=== PATIENT | female | born 1960 | race Caucasian/White ===

== ENCOUNTER 2023-08-27 09:57 | Emergency (ER) | payer MEDICARE, OTHER, SELFPAY ==
[2023-08-27] VITALS (24 sets, daily range): BP systolic 132–171; BP diastolic 72–101; PULSE 67–85; RESP 18; TEMP 37.6; O2SAT 94–100; BMI 32.3
--- NOTE | 2023-08-27 10:29 | CRLHL7_ITS ---
For Patients: As a result of the 21st Century Cures Act, medical imaging exams and procedure reports are released immediately into your electronic medical record. You may view this report before your referring provider. If you have questions, please contact your health care provider. INDICATION: Diffuse abdominal pain, worse in the left upper quadrant and epigastrium COMPARISON: None. TECHNIQUE: CT of the abdomen and pelvis after the administration of intravenous contrast. Multiplanar axial, coronal, and sagittal reformats were reconstructed. Contrast: 90 mL Isovue 370 intravenously. Oral contrast was not administered. FINDINGS: Lung bases: Normal. Liver: Normal. No masses. Normal vasculature. Gallbladder and biliary tree: Cholecystectomy. Mild central intrahepatic and extrahepatic dilatation with normal tapering to the ampulla. Appearance is most consistent with reservoir effect.. Pancreas: Normal. Spleen: Normal. Normal size. Adrenal glands: Normal. No nodules. Kidneys and bladder: Normal size and position. No cyst or mass. No calculi. No urinary tract dilation. The urinary bladder is normal. GI: Large sliding-type hiatal hernia. About 60-75 percent of the stomach is above the hiatus. The entire herniated stomach is not included in the [id number], but where seen there is not a substantial amount of inflammatory change or focal fluid. No dilated segments. No abnormal bowel wall thickening or hyperenhancement. Diverticulosis without diverticulitis. Small stool burden. The appendix is not discretely seen. Vessels: Aorta and major branches, including the mesenteric vessels: Patent. Normal caliber. No atherosclerotic plaques. IVC and tributaries: Normal. Mesenteric and portal veins: Normal. Peritoneum: No free fluid. Lymph nodes: No adenopathy. Pelvis: Physiologic appearance of the reproductive organs. Bones: No fractures. No focal bone lesions. Normal for age. IMPRESSION: IMPRESSIONLarge hiatal hernia containing the majority of the stomach. No CT findings of gastric volvulus or inflammation. Please note that all CT scans at this facility use dose modulation, iterative reconstruction, and/or weight-based dosing when appropriate to reduce radiation dose to as low as reasonably achievable. Dictated by Elissa Hernandez MD @ 08/27/2023 12:44:34 PM (Electronically Signed)
[2023-08-27] MEDS: KETOROLAC 15 MG/ML inj IVP (11:10)
[2023-08-27] MEDS: LACTATED RINGERS 1000 ML 1,000 ML IV (11:10)
--- NOTE | 2023-08-27 11:23 | ED.GENADULT ---
HPI - General Adult General Date Seen: 08/27/23 Chief complaint: Headache/Migraine Stated complaint: Abdominal pain Time Seen by Provider: 08/27/23 10:13 Source: patient Mode of arrival: EMS Limitations: no limitations History of Present Illness HPI narrative: Patient is a 63-year-old female with a history of chronic neck and back disease, fibromyalgia, gastroparesis, PTSD on disability presenting to emergency department for abdominal pain, fatigue, diaphoresis. Patient states this has been a ongoing issue for 4-7 years. She cannot say for certain. Says it happens every few months but does not know states it occurred 3 times in the past month. Issues doing well this morning and he in drink normally. She then we was gone to the bathroom and noticed she became very diaphoretic, weak, dizzy and developed abdominal pain with nausea. Symptoms were not improving so she called EMS. She was given Zofran by them and she states the nausea has improved but is still mildly there. She is now complaining about a severe headache. She has had headaches like this before. States it feels like it is behind her eyes. States her neck is stiff to turn side to side but also states she has chronic neck issues. She has never been evaluated for these symptoms before. Denies fevers, chest pain, shortness breath, diarrhea, constipation. Related Data Home Medications Medication Instructions Recorded Confirmed ipratropium bromide 17 2 puff inhalation QID PRN 05/23/22 07/20/23 mcg/actuation HFA aerosol inhaler (Atrovent HFA) lactobacillus combination no.9 4 4,000 mmu cells PO QDAY 05/23/22 07/20/23 billion cell capsule (Adult 50 Plus Probiotic) levalbuterol tartrate 45 2 puff inhalation Q4H PRN 05/23/22 07/20/23 mcg/actuation aerosol inhaler (Xopenex HFA) lidocaine 4 % topical patch 1 patch topical QDAY PRN 05/23/22 07/20/23 (Salonpas (lidocaine)) lidocaine 5 % topical ointment 1 applic topical QDAY PRN 05/23/22 07/20/23 multivitamin 1 tab PO QDAY 05/23/22 07/20/23 promethazine 25 mg tablet 25 mg PO Q6H PRN 07/12/22 09/08/23 bisacodyl 5 mg tablet,delayed 5 mg PO .COMPLEX PRN constipation 09/29/22 07/20/23 release (Dulcolax (bisacodyl)) simethicone 125 mg capsule (Gas 250 mg PO QDAY PRN 09/29/22 07/20/23 Relief (simethicone)) melatonin 5 mg capsule 15 mg PO DAILY 03/23/23 07/20/23 metholated folic acid PO QDAY 03/23/23 07/20/23 Previous Rx's Medication Instructions Recorded valacyclovir 1 gram tablet 1,000 mg PO BID PRN cold sores #12 07/06/22 tabs mirtazapine 15 mg tablet 7.5 mg (1/2 x 15 mg) PO BID #45 03/23/23 tabs zolpidem 12.5 mg tablet,extended 12.5 mg PO QHS #30 tabs 03/23/23 release,multiphase tramadol 50 mg tablet 50 - 100 mg (1 - 2 x 50 mg) PO TID 04/20/23 PRN pain #150 tabs dextroamphetamine-amphetamine 5 mg 5 mg PO BID #60 tabs 07/20/23 tablet (Adderall) clonazepam 1 mg tablet 1.5 mg (1.5 x 1 mg) PO BID #90 tabs 07/24/23 tizanidine 2 mg tablet 2 - 4 mg (1 - 2 x 2 mg) PO Q6H PRN 08/22/23 muscle spasticity 30 days #240 tabs ondansetron 4 mg disintegrating 4 mg PO Q6H #20 tabs 08/27/23 tablet Allergies Allergy/AdvReac Type Severity Reaction Status Date / Time amitriptyline Allergy Severe tachycardia Verified 07/20/23 13:44 cefprozil Allergy Severe Anaphylaxis Verified 07/20/23 13:44 Cephalosporins Allergy Severe Verified 07/20/23 13:44 quetiapine Allergy Severe Verified 07/20/23 13:44 oxacillin Allergy Mild Verified 07/20/23 13:44 Review of Systems Status of ROS: Reports: 10 or more systems reviewed and unremarkable except as noted in History and below 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 - Myalgic encephalomyelitis/chronic fatigue syndrome (ICD-10) ?U09.9 - Post covid-19 condition, unspecified (ICD-10) COVID-19 ?U07.1 - COVID-19 (ICD-10) History of dental problems ?Z87.19 - Personal history of other diseases of the digestive system (ICD-10) History of sepsis (2012) ?Z86.19 - Personal history of other infectious and parasitic diseases (ICD-10) History of infectious mononucleosis ?Z86.19 - Personal history of other infectious and parasitic diseases (ICD-10) Recurrent herpes labialis ?B00.1 - Herpesviral vesicular dermatitis (ICD-10) Hepatic steatosis ?K76.0 - Fatty (change of) liver, not elsewhere classified (ICD-10) Hyperlipidemia ?E78.5 - Hyperlipidemia, unspecified (ICD-10) Hypertension ?I10 - Essential (primary) hypertension (ICD-10) Mild persistent asthma ?J45.30 - Mild persistent asthma, uncomplicated (ICD-10) Major depressive disorder, recurrent episode, moderate ?F33.1 - Major depressive disorder, recurrent, moderate (ICD-10) Decreased hearing of right ear ?H91.91 - Unspecified hearing loss, right ear (ICD-10) RLS (restless legs syndrome) ?G25.81 - Restless legs syndrome (ICD-10) CYP2B6 intermediate metabolizer ?E88.89 - Other specified metabolic disorders (ICD-10) History of psychiatric hospitalization ?Z86.59 - Personal history of other mental and behavioral disorders (ICD-10) History of gestational diabetes ?Z86.32 - Personal history of gestational diabetes (ICD-10) Fibromyalgia ?M79.7 - Fibromyalgia (ICD-10) GERD (gastroesophageal reflux disease) ?K21.9 - Gastro-esophageal reflux disease without esophagitis (ICD-10) Hypothyroidism ?E03.9 - Hypothyroidism, unspecified (ICD-10) PTSD (post-traumatic stress disorder) ?F43.10 - Post-traumatic stress disorder, unspecified (ICD-10) Gastroparesis ?K31.84 - Gastroparesis (ICD-10) Insomnia ?G47.00 - Insomnia, unspecified (ICD-10) Chronic low back pain ?M54.50 - Low back pain, unspecified (ICD-10) ?G89.29 - Other chronic pain (ICD-10) Surgical History History of cholecystectomy (~2013) ?Z90.49 - Acquired absence of other specified parts of digestive tract (ICD-10) History of bone graft (1994) ?Z98.890 - Other specified postprocedural states (ICD-10) History of tonsillectomy ?Z90.89 - Acquired absence of other organs (ICD-10) Family History Father Coronary artery disease, Onset Age: 39 Stroke, Onset Age: 72 Kidney disease Mother Mental disorder Unknown Cervical cancer Social History Narrative: Disabled. Rarely consumes EtOH. . 3 children. Smoker. Smoking Status: Former smoker Do you use any of these nicotine containing products: None Second hand tobacco smoke exposure: Yes How often do you have a drink containing alcohol: never How often do you have six or more drinks on one occasion: Never AUDIT-C Alcohol total score: 0 Non-prescribed substance use: denies use Little interest or pleasure in doing things: nearly every day Feeling down, depressed, or hopeless: nearly every day service: No Exam Narrative: Exam Narrative: Const: Well-nourished, Well-developed, in mild distress Eyes: PERRL, no conjunctival injection, and symmetrical lids HENT: Atraumatic external nose and ears. Moist mucous membranes. Neck: Symmetric, trachea midline, No thyromegaly. CVS: RRR, No murmurs or gallops. Peripheral pulses 2+ and equal in all extremities RESP: Unlabored respiratory effort. Clear to auscultation bilaterally. GI: Nontender/Nondistended, No rebound or guarding. MSK:Extremities w/o deformity, Normal Active ROM Skin: Warm, Dry. No rashes or lesions. Neuro: Normal Muscle tone, No focal neurological deficits. Psych: Awake, Alert, & Oriented x3. Appropriate mood and affect. Const: Vital Signs, click to edit/add: Vital Signs - 24 hr 08/27/23 10:05 08/27/23 10:58 08/27/23 11:00 Temperature 99.6 F Pulse Rate 82 73 Pulse Rate [Pulse Oximeter] 75 Respiratory Rate 18 Blood Pressure Blood Pressure [Ri ght Upper Arm] 139/72 Pulse Oximetry 94 97 97 Oxygen Delivery Me thod Room Air 08/27/23 11:01 08/27/23 11:15 08/27/23 11:30 Temperature Pulse Rate 73 68 67 Pulse Rate [Pulse Oximeter] Respiratory Rate Blood Pressure 150/84 H Blood Pressure [Ri ght Upper Arm] Pulse Oximetry 98 99 95 Oxygen Delivery Me thod 08/27/23 11:32 08/27/23 11:45 08/27/23 12:12 Temperature Pulse Rate 68 68 76 Pulse Rate [Pulse Oximeter] Respiratory Rate Blood Pressure 136/78 Blood Pressure [Ri ght Upper Arm] Pulse Oximetry 97 97 96 Oxygen Delivery Me thod 08/27/23 12:15 08/27/23 12:30 08/27/23 12:32 Temperature Pulse Rate 80 72 75 Pulse Rate [Pulse Oximeter] Respiratory Rate Blood Pressure 132/85 Blood Pressure [Ri ght Upper Arm] Pulse Oximetry 97 100 97 Oxygen Delivery Me thod 08/27/23 12:45 08/27/23 13:04 08/27/23 13:15 Temperature Pulse Rate 70 82 85 Pulse Rate [Pulse Oximeter] Respiratory Rate Blood Pressure 171/101 H Blood Pressure [Ri ght Upper Arm] Pulse Oximetry 95 98 100 Oxygen Delivery Me thod 08/27/23 13:16 08/27/23 13:30 08/27/23 13:31 Temperature Pulse Rate 79 76 78 Pulse Rate [Pulse Oximeter] Respiratory Rate Blood Pressure 154/92 H Blood Pressure [Ri ght Upper Arm] Pulse Oximetry 99 96 96 Oxygen Delivery Me thod 08/27/23 13:53 08/27/23 14:00 08/27/23 14:02 Temperature Pulse Rate 73 76 81 Pulse Rate [Pulse Oximeter] Respiratory Rate Blood Pressure 169/88 H Blood Pressure [Ri ght Upper Arm] Pulse Oximetry 97 96 96 Oxygen Delivery Me thod 08/27/23 14:15 08/27/23 14:30 08/27/23 14:31 Temperature Pulse Rate 73 77 82 Pulse Rate [Pulse Oximeter] Respiratory Rate Blood Pressure 165/100 H Blood Pressure [Ri ght Upper Arm] Pulse Oximetry 96 98 97 Oxygen Delivery Me thod Course Vital Signs Vital signs: Initial Vital Signs Temperature 99.6 F 08/27/23 10:05 Temperature Source Oral 10/16/23 10:05 Pulse Rate 75 08/27/23 10:05 Pulse Rhythm Regular 08/27/23 10:05 Respiratory Rate 18 08/27/23 10:05 Blood Pressure 139/72 08/27/23 10:05 Blood Pressure Mean 94 08/27/23 10:05 Blood Pressure Position Supine 08/27/23 10:05 Pulse Oximetry 94 08/27/23 10:05 Oxygen Delivery Method Room Air 08/27/23 10:05 Vital Signs Temperature 99.6 F 08/27/23 10:05 Pulse Rate 75 08/27/23 10:05 Respiratory Rate 18 08/27/23 10:05 Blood Pressure 139/72 08/27/23 10:05 Pulse Oximetry 94 08/27/23 10:05 Oxygen Delivery Method Room Air 08/27/23 10:05 Temperature 99.6 F 08/27/23 10:05 Pulse Rate 82 08/27/23 14:31 Respiratory Rate 18 08/27/23 10:05 Blood Pressure 165/100 H 08/27/23 14:31 Pulse Oximetry 97 08/27/23 14:31 Oxygen Delivery Method Room Air 08/27/23 10:05 Medical Decision Making MDM Narrative Medical decision making narrative: Patient is 63 year to year old female presenting for multiple issues. She is having abdominal pain and headache with dizziness and diaphoresis. Diaphoresis since resolved. She still feeling mildly dizzy. Unable move her head due to stiffness of her neck that occurs alongside the symptoms in the past. This is a recurrent issue but is becoming more frequent. Has not had worked up yet. We will do CBC, CMP, urinalysis, magnesium, lipase, troponin. Also or abdominal scan of the CT with IV contrast. Patient given Toradol for pain in L of fluid. She refused the Reglan Benadryl because she says she has bad reactions to and wanted Zofran. This was ordered. After the medications her abdominal pain is feeling slightly better but she still having a bad headache. She said this was a worse headache than she has ever had before sudden the t[place] CT head and cervical spine due to also have a neck stiffness. The CT appears normal. There was some residual IV contrast so we cannot definitively say there was no bleed but it appears unlikely at this time. The headache symptoms have resolved after she got the head CT. The abdominal CT shows a large hiatal hernia. She is aware she has a hiatal hernia. She was complaining of worsening abdominal pain again and the patient was given food, GI cocktail. After this abdominal symptoms have resolved. Likely her abdominal pain was secondary to a hiatal hernia causing gastric reflux. Lipase within normal limits and pancreatitis unlikely. No signs of any other infection in the abdominal CT. Cervical spine CT shows no acute abnormalities. CBC and CMP showed no concerning abnormalities. Urinalysis shows no signs of a UTI. When I went back and spoke to the patient she looks much better at this time she feels comfortable for discharge. Possibly the symptoms are causing her become diaphoretic in the lightheaded is the onset of a migraine that is then shortly followed followed by the pain. She states she is scheduled to follow-up with her primary care provider. She agrees with the plan for discharge. Lab Data Labs: Lab Results 08/27/23 08/27/23 08/27/23 Range/Units 10:50 11:24 13:00 WBC 8.79 (4.50-11.00) K/uL RBC 4.80 (4.00-5.20) m/uL Hgb 13.6 (12.0-16.0) gm/dL Hct 41.7 (33.0-51.0) % MCV 87 (80-100) fL MCH 28 (26-34) pg MCHC 33 (32-36) gm/dL RDW Coeff of [place] 12.0 (11.5-15.5) % Plt Count 208 (140-440) K/uL Neut % (Auto) 80.4 H (42.0-72.0) % Lymph % (Auto) 11.8 L (20-44) % [place] % (Auto) 6.0 (0.0-11.0) % Eos % (Auto) 0.6 (0.0-7.0) % Baso % (Auto) 0.6 (0.0-3.0) % Neut # (Auto) 7.10 H (1.7-7.0) K/uL Lymph # (Auto) 1.00 (0.90-2.90) K/uL [place] # (Auto) 0.50 (0.00-0.90) K/UL Eos # (Auto) 0.05 (0.00-0.50) K/uL Baso # (Auto) 0.05 (0.00-0.30) K/uL Abs Immat Gran (auto) 0.05 (0.00-0.30) K/uL Imm/Tot Granulo (auto) 0.6 % Sodium 140 (135-149) mmol/L Potassium 3.9 (3.6-5.1) mmol/L Chloride 107 (96-114) mmol/L Carbon Dioxide 23 (20-32) mmol/L Anion Gap 10 (7-15) mEq/L BUN 16 (7-30) mg/dL Creatinine 0.9 (0.5-1.5) mg/dL Estimated Creat Clear 54.61 Estimated GFR 72 ml/min Glucose 114 (60-115) mg/dL Calcium 8.8 (8.4-10.6) mg/dL Magnesium 2.2 (1.5-2.6) mg/dL Total Bilirubin 0.6 (0.1-1.5) mg/dL AST 51 H (12-35) U/L ALT 29 (4-35) U/L Alkaline Phosphatase 84 (40-150) U/L Troponin I < 0.01 L (0.01-0.04) ng/mL Total Protein 6.9 (6.0-8.3) g/dL Albumin 4.2 (3.3-5.0) g/dL Lipase 112 (23-300) U/L Urine Color Yellow (Yellow) Urine Appearance Clear (Clear) Urine pH 7.0 (5.0-8.5) Ur Specific [place] 1.015 (1.000-1.030) Urine Protein Negative (Negative) Urine Glucose (UA) Negative (Negative) Urine Ketones Negative (Negative) Urine Blood Negative (Negative) Urine Nitrite Negative (Negative) Urine Bilirubin Negative (Negative) Urine Urobilinogen 0.2 (0.2-1.0) Ur Leukocyte Esterase Negative (Negative) Urine RBC 0-2 (0-2) Urine WBC 0-2 (0-5) Ur Squamous Epith Cells Few (None-Few) Amorphous Sediment Few A (None) Urine Bacteria None (None) POC Creatinine 1.0 (0.6-1.3) mg/dl Imaging Data CT scan - head: Radiologist's impression: Indication: Headache, migraine Technique: Volumetric multidetector CT images of the head were obtained without the administration of low osmolar intravenous contrast. Comparison: None available Findings: Overall, exam is mildly limited due to previously administered intravenous contrast for recent abdominal exam. No obvious intra-axial or extra-axial hemorrhage is identified. Trace subarachnoid hemorrhages may be difficult to exclude. There is no mass effect or midline shift. The ventricles and sulci are normal in size and position for age. There is mild to moderate chronic small vessel disease change within the subcortical and periventricular white matter. Otherwise, the brain parenchyma is preserved in attenuation and casanova-white differentiation. The orbits and their contents are grossly within normal limits. The bony calvarium is grossly intact. The paranasal sinuses are clear. The mastoid air cells are well aerated. Impression: Mildly limited exam due to administration of contrast material from recent CT abdomen pelvis. Mildly limited evaluation of subtle extra-axial hemorrhage. Otherwise, no acute intracranial abnormality is identified. Please note that all CT scans at this facility use dose modulation, iterative reconstruction, and/or weight-based dosing when appropriate to reduce radiation dose to as low as reasonably achievable. Dictated by Brandt Harris MD @ 08/27/2023 2:22:[address] scan cervical spine: Radiologist's impression: Indication: Headache migraine neck pain, no known DJD Technique: Volumetric multidetector CT images of the cervical spine were obtained without the administration of IV contrast. Comparison: None available. Findings: The cervical vertebral body heights are grossly maintained. There is straightening of the normal cervical lordosis with trace anterolisthesis of C4 on C5 and C6 on C7. There is no displaced fracture or dislocation. There is moderate degenerative disc disease with disc height loss and marginal osteophyte formation worse at the C4-5, C5-6 and C6-C7 levels. There is moderate facet arthrosis. The paraspinous soft tissues are grossly within normal limits. Impression: Moderate degenerative changes of the cervical spine without acute osseous abnormality. Please note that all CT scans at this facility use dose modulation, iterative reconstruction, and/or weight-based dosing when appropriate to reduce radiation dose to as low as reasonably achievable. Dictated by Brandt Harris MD @ 08/27/2023 2:30:[address] scan abdomen pelvis: Radiologist's impression: INDICATION: Diffuse abdominal pain, worse in the left upper quadrant and epigastrium COMPARISON: None. TECHNIQUE: CT of the abdomen and pelvis after the administration of intravenous contrast. Multiplanar axial, coronal, and sagittal reformats were reconstructed. Contrast: 90 mL Isovue 370 intravenously. Oral contrast was not administered. FINDINGS: Lung bases: Normal. Liver: Normal. No masses. Normal vasculature. Gallbladder and biliary tree: Cholecystectomy. Mild central intrahepatic and extrahepatic dilatation with normal tapering to the ampulla. Appearance is most consistent with reservoir effect.. Pancreas: Normal. Spleen: Normal. Normal size. Adrenal glands: Normal. No nodules. Kidneys and bladder: Normal size and position. No cyst or mass. No calculi. No urinary tract dilation. The urinary bladder is normal. GI: Large sliding-type hiatal hernia. About 60-75 percent of the stomach is above the hiatus. The entire herniated stomach is not included in the [id number], but where seen there is not a substantial amount of inflammatory change or focal fluid. No dilated segments. No abnormal bowel wall thickening or hyperenhancement. Diverticulosis without diverticulitis. Small stool burden. The appendix is not discretely seen. Vessels: Aorta and major branches, including the mesenteric vessels: Patent. Normal caliber. No atherosclerotic plaques. IVC and tributaries: Normal. Mesenteric and portal veins: Normal. Peritoneum: No free fluid. Lymph nodes: No adenopathy. Pelvis: Physiologic appearance of the reproductive organs. Bones: No fractures. No focal bone lesions. Normal for age. IMPRESSION: IMPRESSIONLarge hiatal hernia containing the majority of the stomach. No CT findings of gastric volvulus or inflammation. Please note that all CT scans at this facility use dose modulation, iterative reconstruction, and/or weight-based dosing when appropriate to reduce radiation dose to as low as reasonably achievable. Dictated by Eilssa Hernandez MD @ 08/27/2023 12:44:34 PM ECG Data Attestation: I personally reviewed and interpreted this ECG as follows: Prior ECG tracings: not available for review Interpretation: Normal sinus rhythm with a rate of 72 beats per minute, normal intervals, normal axis, no ST or T-wave abnormalities. There is a large amount of artifact. Discharge Plan Discharge Clinical Impression: Migraine, Abdominal pain Patient Disposition: Home, Self-Care Condition: Improved Instructions: Hiatal Hernia (ED), Migraine Headache (ED) Additional Instructions: Follow-up with primary care provider for these symptoms. Her headache appears to be secondary to a migraine. Take Tylenol and ibuprofen for it. The abdominal pain could be related to her hiatal hernia causing gastric reflux. Try taking antacids if you developed the pain. Prescriptions: New ondansetron 4 mg tablet,disintegrating 4 mg PO Q6H Qty: 20 0RF No Action simethicone [Gas Relief (simethicone)] 125 mg capsule 250 mg PO QDAY PRN melatonin 5 mg capsule 15 mg PO DAILY metholated folic acid PO QDAY zolpidem 12.5 mg tablet,ext release multiphase 12.5 mg PO QHS Qty: 30 5RF mirtazapine 15 mg tablet 7.5 mg PO BID Qty: 45 5RF dextroamphetamine-amphetamine [Adderall] 5 mg tablet 5 mg PO BID Qty: 60 0RF Rx Instructions: administer doses at least 4-6 hours apart Atrovent HFA 17 mcg/actuation HFA aerosol inhaler 2 puff inhalation QID PRN levalbuterol tartrate [Xopenex HFA] 45 mcg/actuation HFA aerosol inhaler 2 puff inhalation Q4H PRN lidocaine 5 % ointment 1 applic topical QDAY PRN promethazine 25 mg tablet 25 mg PO Q6H PRN Adult 50 Plus Probiotic 4 billion cell capsule 4,000 mmu cells PO QDAY Rx Instructions: administer with a meal lidocaine [Salonpas (lidocaine)] 4 % adhesive patch,medicated 1 patch topical QDAY PRN multivitamin Tablet 1 tab PO QDAY valacyclovir 1 gram tablet 1,000 mg PO BID PRN (Reason: cold sores) Qty: 12 5RF Patient Comments: for 5 days bisacodyl [Dulcolax (bisacodyl)] 5 mg tablet,delayed release (DR/EC) 5 mg PO .COMPLEX PRN (Reason: constipation) Rx Instructions: 5 mg orally As needed PRN; tramadol 50 mg tablet 50 - 100 mg PO TID PRN (Reason: pain) Qty: 150 2RF Rx Instructions: Must last a month clonazepam 1 mg tablet 1.5 mg PO BID Qty: 90 2RF Rx Instructions: Take 1 and 1/2 tabs PO BID p.r.n. tizanidine 2 mg tablet 2 - 4 mg PO Q6H PRN (Reason: muscle spasticity) 30 Days Qty: 240 5RF Follow Up/Referrals: Bobby Evans MD [Primary Care Provider] - Stand Alone Forms: [employer] Info Instructions
[2023-08-27] MEDS: ONDANSETRON 2 MG/ML inj 4 MG IVP (11:24)
[2023-08-27 12:06] LABS: Albumin* 4.2 g/dL (3.3-5.0); Chloride* 107 mmol/L (96-114)
[2023-08-27 12:07] LABS: Potassium* 3.9 mmol/L (3.6-5.1); Sodium* 140 mmol/L (135-149)
[2023-08-27 12:08] LABS: Basophils Absolute Auto 0.05 K/uL (0.00-0.30); Basophils Percent Auto 0.6 % (0.0-3.0); Eosinophils Absolute Auto 0.05 K/uL (0.00-0.50); Eosinophils Percent Auto 0.6 % (0.0-7.0); Hematocrit 41.7 % (33.0-51.0); Hemoglobin* 13.6 gm/dL (12.0-16.0); Immature Granulocytes Abs Auto 0.05 K/uL (0.00-0.30); Immature Granulocytes Pct Auto 0.6 %; Lymphocytes Percent Auto 11.8 % (20-44); Mean Corpuscular HGB Conc 33 gm/dL (32-36); Mean Corpuscular Hemoglobin 28 pg (26-34); Mean Corpuscular Volume 87 fL (80-100); Neutrophils Percent Auto 80.4 % (42.0-72.0); Platelet Count* 208 K/uL (140-440); White Blood Count* 8.79 K/uL (4.50-11.00)
[2023-08-27 12:09] LABS: Alkaline Phosphatase* 84 U/L (40-150); Anion Gap 10 mEq/L (7-15); Aspartate Amino Transferase* 51 U/L (12-35); Bilirubin Total* 0.6 mg/dL (0.1-1.5); Blood Urea Nitrogen* 16 mg/dL (7-30); Carbon Dioxide* 23 mmol/L (20-32); Creatinine* 0.9 mg/dL (0.5-1.5); Est. Creatinine Clearance* 54.61; Estimated Glomerular Filt Rate 72 ml/min; Glucose* 114 mg/dL (60-115); Lipase* 112 U/L (23-300); Slide Review Reflex No; Total Protein* 6.9 g/dL (6.0-8.3)
[2023-08-27 12:10] LABS: Alanine Aminotransferase* 29 U/L (4-35); Calcium* 8.8 mg/dL (8.4-10.6); Magnesium* 2.2 mg/dL (1.5-2.6)
[2023-08-27 12:24] LABS: Troponin I* < 0.01 ng/mL (0.01-0.04)
--- NOTE | 2023-08-27 13:04 | CRLHL7_ITS ---
For Patients: As a result of the Century Cures Act, medical imaging exams and procedure reports are released immediately into your electronic medical record. You may view this report before your referring provider. If you have questions, please contact your health care provider. Indication: Headache migraine neck pain, no known DJD Technique: Volumetric multidetector CT images of the cervical spine were obtained without the administration of IV contrast. Comparison: None available. Findings: The cervical vertebral body heights are grossly maintained. There is straightening of the normal cervical lordosis with trace anterolisthesis of C4 on C5 and C6 on C7. There is no displaced fracture or dislocation. There is moderate degenerative disc disease with disc height loss and marginal osteophyte formation worse at the C4-5, C5-6 and C6-C7 levels. There is moderate facet arthrosis. The paraspinous soft tissues are grossly within normal limits. Impression: Moderate degenerative changes of the cervical spine without acute osseous abnormality. Please note that all CT scans at this facility use dose modulation, iterative reconstruction, and/or weight-based dosing when appropriate to reduce radiation dose to as low as reasonably achievable. Dictated by Brandt Harris MD @ 08/27/2023 2:30:16 PM (Electronically Signed)
--- NOTE | 2023-08-27 13:04 | CRLHL7_ITS ---
For Patients: As a result of the Century Cures Act, medical imaging exams and procedure reports are released immediately into your electronic medical record. You may view this report before your referring provider. If you have questions, please contact your health care provider. Indication: Headache, migraine Technique: Volumetric multidetector CT images of the head were obtained without the administration of low osmolar intravenous contrast. Comparison: None available Findings: Overall, exam is mildly limited due to previously administered intravenous contrast for recent abdominal exam. No obvious intra-axial or extra-axial hemorrhage is identified. Trace subarachnoid hemorrhages may be difficult to exclude. There is no mass effect or midline shift. The ventricles and sulci are normal in size and position for age. There is mild to moderate chronic small vessel disease change within the subcortical and periventricular white matter. Otherwise, the brain parenchyma is preserved in attenuation and casanova-white differentiation. The orbits and their contents are grossly within normal limits. The bony calvarium is grossly intact. The paranasal sinuses are clear. The mastoid air cells are well aerated. Impression: Mildly limited exam due to administration of contrast material from recent CT abdomen pelvis. Mildly limited evaluation of subtle extra-axial hemorrhage. Otherwise, no acute intracranial abnormality is identified. Please note that all CT scans at this facility use dose modulation, iterative reconstruction, and/or weight-based dosing when appropriate to reduce radiation dose to as low as reasonably achievable. Dictated by Brandt Harris MD @ 08/27/2023 2:22:49 PM (Electronically Signed)
[2023-08-27 13:06] LABS: Appearance Urine Clear (Clear); Bilirubin Urine Negative (Negative); Blood Urine Negative (Negative); Color Urine Yellow (Yellow); Glucose Urine Negative (Negative); Ketones Urine Negative (Negative); Leukocyte Esterase Urine Negative (Negative); Nitrite Urine Negative (Negative); Protein Urine Negative (Negative); Specific Gravity Urine 1.015 (1.000-1.030); Urobilinogen Urine 0.2 (0.2-1.0)
[2023-08-27] MEDS: MORPHINE 4 MG/ML INJ IVP (13:14)
--- NOTE | 2023-08-27 13:15 | ED.NURSE ---
Pt tearful in room, complaining of worsening head pain. Pt given IV pain med per JAN, pt provided with warm blanket to apply to forehead.
--- NOTE | 2023-08-27 13:25 | ED.NURSE ---
Pt reports significant pain relief after pain med administration.
[2023-08-27 13:31] LABS: Amorphous Sediment Urine Few; RBC Urine 0-2 (0-2); WBC Urine 0-2 (0-5)
[2023-08-27 13:32] LABS: Squamous Epithelial Cell Urine Few (None-Few)
[2023-08-27] MEDS: MAG HYDROX/ALUMINUM HYD/SIMETH 30 ML ORAL.SUSP 15 ML PO (14:48)
[2023-08-27] MEDS: lidocaine HCL 4 % TOP SOLN 50 ML BOTTLE 7.5 ML PO (14:48)
== END 2023-08-27 15:48 | disposition home or self-care (01) ==
PROVIDERS: Emergency Provider Student in an Organized Health Care Education/Training Program; PCP Family Medicine
DX: R10.9 Unspecified abdominal pain (principal); G43.909 Migraine, unspecified, not intractable, without status migrainosus
CPT/HCPCS: 36415; 70450; 72125; 74177; 80053; 81001; 82565; 83690; 83735; 84484; 85025; 93005; 96375; 99283; 99284; 99285; A9270; J1885; J2270; J2405; J7120; Q9967

== ENCOUNTER 2023-08-31 16:11 | Outpatient (CLI) | payer MEDICARE, OTHER, SELFPAY | END 2023-08-31 16:12 | disposition home or self-care (01) | PROVIDERS: PCP Family Medicine; Visit Provider Family Medicine | DX: R53.83 Other fatigue (principal) | CPT/HCPCS: 84439; 84443; 84481 ==

== ENCOUNTER 2024-04-04 15:03 | Outpatient (CLI) | payer MEDICARE, OTHER, SELFPAY ==
--- OUTSIDE RECORDS SUMMARY | 2024-04-04 15:08 | XMS_ITS | Continuity of Care Document ---
Author Organization [facility] Address [address] [place] [address] Phone Care Team Providers Care Wall Insulation Sprayer Name Role Phone Bobby Lam MD Unavailable Unavailable Allergies, Adverse Reactions, Alerts Substance Reaction Status Criticality cefprozil shock Active No Information penicillin G Hives/Skin Rash Active No Informati on azithromycin welts on back Active No Informati on Medications Medication Instructions Dosage Effective Dates (start - stop) Status Comments hydromorphone 2 mg Tab take 2 Tablet (4M G) by oral route every 4 - 6 hours as needed 4 MG - Active Zanaflex 4 mg Cap take 1 capsule (4MG) by oral route 3 times every day 4 MG - Active lisinopril 5 mg Tab take 1 tablet (5MG) by oral route every day 5 MG - Active Lidoderm 5 % (700 mg/patch) Adhesive Patch apply 1 patch by transdermal route every day (May wear up to 12hours.) 1.00 patch - Active metoclopramide 10 mg Tab take 1 tablet (10MG) by oral route 4 times every day 30 minutes before meals and at bedtime 10 MG - Active Flintstones Complete Chewable Tab take 1 Tablet by Oral route every day 1 Tablet - Active Viactiv 500 mg-100 unit-40 mcg Chewable Tab take 1 Tablet by Oral route every day 1 Tablet - Active Requip 2 mg Tab take 1 tablet (2MG) by oral route 3 times every day - Active ibuprofen 800 mg Tab take 1 tablet (800MG) by oral route 3 times every day with food 800 MG - Active Zantac 150 mg Tab take 1 tablet (150MG) by oral route 2 times every day - Active Effexor 50 mg Tab take 1 tablet (50MG) by oral route 2 times every day with food - Active Procedures Procedure Date Therap Activities 1-on-1 Ea 15 12 Phys Therap Eval Offic Cons New/estab Mod-hi 60 12 QA DONE Advance Directives Directive Yes / No Effective Date File Name No Information Encounters Encounter Description Practice Location Reason(s) For Visit Diagnoses Date Provider Providers Copied on Encounter SONAL Simeon, [address], [place], [place], [id number], [place] tel:[phone] [facility] No Information Carole Rosalse. [address], [place], [place], [id number], [place]. tel:[phone] Referring Provider: Nelly Yadav MD P, [address] [place] [facility] [place], [address]. tel:[phone] [facility], [address], [place], [place], [id number], [place] tel:[phone] [facility] [address] No Information Marli Wood. [address], [place], [place], [id number], [place]. tel:[phone] Referring Provider: Nelly Yadav MD P, [address] [facility] [place], [address]. tel:[phone] Offic Cons New/estab Mod-hi 60 [facility], [address], [place], [place], [id number], [place] tel:[phone] [facility] No Information Zan Mendoza. [address], [place], [address], [place]. tel:[phone] Referring Provider: Nelly Yadav MD P, [address] [place], [address]. tel:[phone] Family History Family Member Type Diagnosis Age At Onset No Information Payers Payer name Insurance type Covered republican ID Kyara betancur(s) [employer]mercial [id number] Social History Type Description Quantity Date Captured Comments Alcohol Use Details No Caffeine Use Details Unknown Tobacco Use Status No Information Smoking Status Former Smoker Non-Smoking Tobacco Use Details : No Details Available : No Details Available Sex Female Chief Complaint And Reason For Visit No Information Reason For Referral Reason For Referral No Information History Of Present Illness Encounter Date Complaint History Of Prese nt Illness No Information Functional Status Date Functional Assessmen t No Information Instructions Date Instruction Additional Infor mation No Information Assessments Type Assessment Date No Information Patient Care Teams Name Effective Dates (start - stop) Status Members No Information
--- OUTSIDE RECORDS SUMMARY | 2024-04-04 15:08 | XMS_ITS | Clinical Summary ---
Author Organization [facility] Facility Address [address] [address] Care Team Providers Care Cardiopulmonary Supervisor Name Role Phone Unavailable Primary Care Provider Unavailabl e Social History Tobacco Use Types Packs/Day Years Used Date Smoking Tobacco: Never Assessed Sex and Gender Information Value Date Recorded Sex Assigned at Not on file Gender Identity Not on file Sexual Orientation Not on file Plan of Treatment Health Maintenance Due Date Last Done Comments Breast Cancer Screening 1961 Pneumococcal Vaccine: Pediat rics (0 to 5 Years) and At-Risk Patients (6 to 64 Years) (1 of 2 - PCV) 1967 Colorectal Cancer Screening: Annual FOBT 2010 Colorectal Cancer Screening: Colonoscopy 2010 Colorectal Cancer Screening: Sigmoidoscopy 2010 Hepatitis B Vaccine (1 of 3 - Risk 3-dose series) 12/14 Influenza Vaccine (Season Ended) 2024
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
== END 2024-04-04 15:04 | disposition home or self-care (01) ==
PROVIDERS: PCP Family Medicine; Visit Provider Family Medicine
DX: E78.2 Mixed hyperlipidemia (principal); E55.9 Vitamin D deficiency, unspecified; M79.7 Fibromyalgia; R53.83 Other fatigue
CPT/HCPCS: 80053; 80061; 82306; 82607; 82746

== ENCOUNTER 2024-04-17 13:50 | Outpatient (CLI) | payer MEDICARE, OTHER, SELFPAY ==
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
--- OUTSIDE RECORDS SUMMARY | 2024-05-02 18:48 | XMS_ITS | Clinical Summary ---
Author Organization [facility] Facility Address [address] [address] Care Team Providers Care Plaster Machine Operator Name Role Phone Unavailable Primary Care Provider [...]
--- OUTSIDE RECORDS SUMMARY | 2024-05-02 18:48 | XMS_ITS | Continuity of Care Document ---
Author Organization [facility] Address [address] [facility] [address] [place] [address] Phone Care Team Providers Care Terrazzo Worker Apprentice Name Role Phone Bobby Lam MD Unavailable [...] Providers Copied on Encounter SONAL Simeon, [address], [place], [place], [id number], [place] tel:[phone] [facility] No Information Carole Rosales. [address], [place], [place], [id number], [place]. tel:[phone] Referring Provider: Nelly Yadav MD P, [address] [facility] [place], [address]. tel:[phone] [facility], [address], [place], [place], [id number], [place] tel:[phone] [facility] [address] No Information Marli Wood. [address], [place], [place], [id number], [place]. tel:[phone] Referring Provider: Nelly Yadav MD P, [address] [facility] [place], [address]. tel:[phone] Offic Cons New/estab Mod-hi 60 [facility], [address], [place], [place], [id number], [place] tel:[phone] [facility] No Information Zan Mendoza. [address] [facility] [address], [place], [address], [place]. tel:[phone] Referring Provider: Nelly Yadav MD P, [address] [place], [address]. tel:[phone] Family History Family Member Type Diagnosis Age At Onset No Information Payers Payer name Insurance type Covered constitution party ID Kyara betancur(s) Care-Commercial [id number] Social History Type Description Quantity Date Captured [...]
--- OUTSIDE RECORDS SUMMARY | 2024-05-02 18:48 | XMS_ITS | Clinical Summary ---
Author Organization [employer] [facility] Address [place], [place] [address] Care Team Providers Care Press Washer Name Role Phone No, Pcp [[id number]] Primary [...] Gastroparesis 09/05/2011 Bulge of thoracic disc without [id number] 08/01/2011 HTN (hypertension) 07/24/2011 Hyperlipidemia 07/11/2011 [...] breast 02/08/2006 Overview: R breast, w/u in [place] Resolved Problems Problem Noted Date Diagnosed Date [...] Encounters Date Type Department Care Team Description 04/24/2024 2:00 PM CDT Telemedicine [facility] [address] [place] [address] Dorie Grubbs PsyD, CROW Individual Therapy; Telehealth 04/08/2024 2:00 PM CDT Phone Office Visit [facility] [address] [place] [address] Dorie Grubbs PsyD, CROW Individual Therapy; Phone Visit 04/01/2024 2:00 PM CDT Telemedicine [facility] [address] [place] [address] Dorie Grubbs PsyD, CR[place] Individual Therapy; Telehealth 03/25/2024 2:00 PM CDT Telemedicine [facility] [address] [place] [address] Dorie Grubbs PsyD, CR[place] Individual Therapy; Telehealth 03/25/2024 Travel 03/13/2024 2:00 PM CDT Telemedicine [facility] [address] [place] [address] Dorie Grubbs PsyD, CROW Individual Therapy; [facility] 03/13/2024 Travel 03/04/2024 2:00 PM CDT Phone Office Visit [facility] [address] [place] [address] Dorie Grubbs PsyD, CROW Individual Therapy; Phone Visit 02/14/2024 2:00 PM CDT Telemedicine [facility] [address] [place] [address] Dorie Grubbs PsyD, CROW Individual Therapy; Telehealth 02/14/2024 Travel 02/07/2024 2:00 PM CDT Telemedicine [facility] [address] [place] [address] Dorie Grubbs PsyD, CROW Individual Therapy; Telehealth from Last 3 Months Immunizations Name Administration [...] Outcome GA Total Labor Labor/2nd/3rd Weight Sex Type Anes PTL Alise A1 A5 Name Clin Term Last Filed Vital Signs Vital Sign [...] Care Team (Late st Contact Info) Description 05/08/2024 1:00 PM CDT Telemedicine [facility] [address] [place], [place] [id number] [place] [address] [place], [place] [id number] 05/22/2024 2:00 PM CDT Telemedicine [facility] [address] [place] [address] [place] [address] [place] [address] 05/29/2024 2:00 PM CDT Telemedicine [facility] [address] [place], [place] [id number] [place] [address] [place] [address] Health Maintenance Due Date Last Done Comments Zoster (shingles) series for age 50+ (1 of 2) 2011 Fecal testing non-DNA (FIT,FOBT,iFOBT) for age 45-75 08/20/2016 08/20/2015 (Completed outside of [facility]), 01/18/2014 Mammogram for age 45-75 01/05/2017 01/05/20 [...] Procedure Name Priority Date/Time Associated Diagnosis Comments FLOOR CLEANER THIN PREP PAP SCREEN IMAGED Routine 10/08/2017 1:40 PM FRUIT COORDINATOR LIPID PANEL W REFLEX MEASURED LDL Routine 12/14/2016 3:16 PM FRUIT COORDINATOR Hyperlipidemia, unspecified hyperlipidemia type XR MAMMO BILAT SCREEN FFDM (IA) Routine 01/05/2016 12:12 PM FRUIT COORDINATOR Visit for screening mammogram ANTI HIV 1/2 Routine 11/23/2015 10:17 AM FRUIT COORDINATOR Routine screening for STI (sexually transmitted infection) ANTI HCV Routine 11/23/2015 10:17 AM FRUIT COORDINATOR Routine screening for STI (sexually transmitted infection) OCCULT BLOOD IFOBT STOOL Routine 01/18/2014 8:00 AM CDT Screen for colon cancer from Last 3 Months or Most Recently Relevant to Health Maintenance Results * FLOOR CLEANER THIN PREP PAP SCREEN IMAGED (10/08/2017 1:40 PM FRUIT COORDINATOR) Case Report Gynecologic Cytology Report ? Case: [id number] ? Authorizing Provider: ??Mindi Romano MD ?Collected: ? 10/08/2017 1340 ? First Screen: ?Kalina Zayas ? Received: ?10/09/2017 1148 ? Specimen: ?FLOOR CLEANER ThinPrep Vial Screening, Cervical/Vaginal ? 10/16/2017 12:02 PM FRUIT COORDINATOR [facility] INTERPRETATION/ RESULT NEGATIVE FOR INTRAEPITHELIAL LESION OR MALIGNANCY (NIL) (none) 10/16/2017 12:02 PM FRUIT COORDINATOR [facility] IMEN ADEQUACY Satisfactory for evaluation Endocervical component present 10/16/2017 12:02 PM FRUIT COORDINATOR [facility] HPV REQUEST HPV and PAP 10/16/2017 12:02 PM [facility] Automated Review Successful 10/16/2017 12:[address] [facility] Comment:Specimen processed s uccessfully by automated police booking officer device, ThinPrep Imaging System, [employer] ANCILLARY TESTING FLOOR CLEANER HPV Ordered, Please see separate report 10/16/2017 12:02 PM FRUIT COORDINATOR [facility] Note The pap test is a screening technique, not a diagnostic procedure. ??It is used primarily to screen for squamous cancers and precursor lesions. ??Published studies have shown that it is subject to both false negative and false positive results. ??The pap test should not be used as the sole means to diagnose or exclude pre-malignant and malignant lesions. Interpreted at [facility] ([facility], [facility], [facility], [facility], [facility], [facility], [facility]) 10/16/2017 12:02 PM [facility] Other (Cervical/Vagina l) 10/08/2017 1:40 PM FRUIT COORDINATOR 10/09/2017 11:48 AM FRUIT COORDINATOR Mindi Romano MD PATHOLOGY/[facility] [address] [place] [address], * (ABNORMAL) LIPID PANEL W REFLEX MEASURED LDL (12/14/2016 3:16 PM FRUIT COORDINATOR) CHOLESTEROL,TOTAL 232(H) 100 - 199 mg/dL 12/15/2016 3:56 PM [facility] TRIGLYCERIDES 218(H) <150 mg/dL 12/15/2016 3:56 PM [facility] HDL CHOLESTEROL 60 >40 mg/dL 7 3:56 PM [facility] NON-HDL CHOLESTEROL 172(H) <145 mg/dl 12/15/2016 3:56 PM [facility] CHOL/HDL RATIO 3.87 <4.50 12/15/2016 3:56 PM [facility] LDL CHOLESTEROL 128 <=130 mg/dL 12/15/2016 3:56 PM [facility] PATIENT STATUS FASTING 12/15/2016 3:56 PM FRUIT COORDINATOR [facility] Blood BLOOD SPECIMEN / Unknown Venipuncture / Unknown 12/14/2016 3:16 PM FRUIT COORDINATOR 12/14/2016 3:16 PM FRUIT COORDINATOR Chrissie Tavera MD [facility]Y [facility] [address] [place] [address], [place] * XR MAMMO BILAT SCREEN FFDM (01/05/2016 12:12 PM FRUIT COORDINATOR) Anatomical Region Laterality Modality BREASTS, Breast Left, Breast Right Bilateral Mammography Impressions 01/05/2016 1:18 PM FRUIT COORDINATOR ??There is no radiographic evidence for malignancy. ??Recommend annual mammograms. A lay language report of this examination will be provided to the patient. MAMMOGRAM ASSESSMENT: ??ACR 1 Negative Narrative 01/05/2016 1:18 PM FRUIT COORDINATOR XR MAMMO BILAT SCREEN FFDM [G0202.0] CLINICAL HISTORY: ??This is an asymptomatic 56 y.o. patient. INDICATION FOR EXAM: Mammogram Screening. TECHNIQUE: CC & MLO views were obtained. ??This digital study was evaluated with the assistance of Computer-Aided Detection. COMPARISON FILM: Yes 08/18/14 [facility] 10/04/11 [facility] FINDINGS: ??Mammographically, the breast tissue has scattered fibroglandular densities. ??There are no dominant masses, suspicious micro calcifications or areas of architectural distortion. Nelly Yadav MD MAMMO * ANTI HCV (11/23/2015 10:17 AM FRUIT COORDINATOR) HEPATITIS C ANTIBODY Non-Reacti ve Non-Reacti ve 11/23/2015 4:39 PM FRUIT COORDINATOR [facility] Blood specimen (specimen) BLOOD SPECIMEN / Unknown Venipuncture / Unknown 11/23/2015 10:17 AM FRUIT COORDINATOR 11/23/2015 10:17 AM FRUIT COORDINATOR Narrative [facility] - 11/23/2015 4:39 PM FRUIT COORDINATOR Antibodies to HCV not detected; does not exclude the possibility of exposure to HCV. Nelly Yadav MD SEND OUTS [facility] [address] [place] [address], * ANTI HIV 1/2 (11/23/2015 10:17 AM FRUIT COORDINATOR) HIV-1/HIV-2 ANTIBODY Non-Reacti ve Non-Reacti ve 11/23/2015 4:38 PM FRUIT COORDINATOR [facility] Blood specimen (specimen) BLOOD SPECIMEN / Unknown Venipuncture / Unknown 11/23/2015 10:17 AM FRUIT COORDINATOR 11/23/2015 10:17 AM FRUIT COORDINATOR Narrative [facility] - 11/23/2015 4:38 PM FRUIT COORDINATOR HIV-1 p24 and HIV-1/HIV-2 Ab not detected Nelly Yadav MD SEND OUTS Performing Organization Address City/[facility]/ZIP Co de Phone Number [facility] [address] [place] [address], * OCCULT BLOOD IFOBT STOOL (01/18/2014 8:00 AM CDT) STOOL BLOOD ,IFOBT Negative Negative, Invalid 01/19/2014 12:05 PM CDT [facility] Stool specimen (specimen) STOOL SPECIMEN / Unknown Non-Blood / Unknown 01/18/2014 8:00 AM CDT 01/19/2014 11:56 AM CDT Nelly Yadav MD LABORATORY [facility] [address] [place] [address], from Last 3 Months or Most Recently Relevant to Health Maintenance Insurance Payer Benefit Plan / Group Subscriber ID Effective Dates Phone Address Type [employer] [id number] 05/09/2016-Pres ent [address] [address] [place] [id number] [employer] [facility] [employer]ANCE [id number] 01/21/2011-Pres ent [address] [place] [address] [employer] WORK[employer] [id number] 08/12/2020-Pres ent [address] [place] [address] MEDICARE PART A - HB USE ONLY MEDICARE PART A HB ONLY [id number] 10/12/2013-Pres ent ATTN: CLAIMS [address] [facility] [place] [place] [address] MEDICARE PART B - HB USE ONLY MEDICARE PART B HB ONLY [id number] 10/12/2013-Pres ent ATTN: CLAIMS [address] [facility] [place] [address] MEDICARE PART B - HB USE ONLY MEDICARE PART B HB ONLY [id number] 10/12/2013-Pres ent ATTN: CLAIMS [address] [facility] [place] [address] MEDICA MEDICA CHOICE [id number] 10/12/2012-Pres ent [address] [address] [place] [address] MEDICARE PPS HC MEDICARE PPS [id number] 10/12/2013-Pr es ent [address] [place] [address] MEDICA MEDICA PRIME SOLUTION [place] [id number] 12/13/2014-Prese nt [address] [address] [place] [address] MEDICARE - PB USE ONLY MEDICARE PB ONLY [id number] 11/12/2018-Prese nt ATTN: CLAIMS [address] [place] [address] MEDICA MEDICA SELECT SOLUTION [id number] 11/12/2018-Prese nt [address] [address] [place] [address] Advance Directives * Full Code (Latest Code [...] 7:22 AM 05/28/2012 10:28 AM Care Teams Press Washer Relationship Specialty Start Date End Date NO, PCP [[id number]] PCP - General 04/11/17
== END 2024-04-17 13:51 | disposition home or self-care (01) ==
LOC: NFLDREF 05-02 18:47
PROVIDERS: PCP Family Medicine; Referring Provider Family Medicine; Visit Provider Registered Nurse
DX: R39.9 Unspecified symptoms and signs involving the genitourinary system (principal); N89.8 Other specified noninflammatory disorders of vagina
CPT/HCPCS: 87086

== ENCOUNTER 2024-09-30 15:07 | Outpatient (CLI) | payer MEDICARE, OTHER, SELFPAY | END 2024-09-30 15:08 | disposition home or self-care (01) | LOC: FBOREF 15:10 | PROVIDERS: PCP Family Medicine; Visit Provider Family Medicine | DX: I10 Essential (primary) hypertension (principal) | CPT/HCPCS: 80048 ==

== ENCOUNTER 2025-03-31 15:25 | Outpatient (CLI) | payer MEDICARE, OTHER, SELFPAY | END 2025-03-31 15:26 | disposition home or self-care (01) | PROVIDERS: PCP Family Medicine; Visit Provider Family Medicine | DX: E78.2 Mixed hyperlipidemia (principal); I10 Essential (primary) hypertension | CPT/HCPCS: 80048; 80061 ==